=== PATIENT | female | born 2000 | race Caucasian/White ===

== ENCOUNTER 2024-05-24 06:41 | Outpatient (REF) | payer OTHER, SELFPAY ==
--- NOTE | ~2024-05-24 | US_ITS ---
CLINICAL HISTORY: LEFT FLANK PAIN US Renal Comparison: None Findings: Right kidney normal size and echotexture, 11.6 cm length. Left kidney normal size and echotexture, 10.1 cm length. No hydronephrosis of either kidney. Normal color Doppler. Urinary bladder is unremarkable. Prevoid volume 508 mL. Postvoid volume 12 mL. Bilateral ureteral jets are visualized. IMPRESSION: 1. Normal kidneys. This document has been electronically signed by: Jerman Jaime MD on 05/24/2024 12:09:04
--- OUTSIDE RECORDS SUMMARY | 2024-05-24 10:25 | XMS_ITS | Encounter Summary ---
Author Organization [facility] Address [address] [place] [address] Care Team Providers Care Skip Load Driver Name Role Phone Unavailable Primary Care Provider Unavailabl e Encounter Details Date Type Department Care Team (Late st Contact Info) Description 05/21/2024 Orders Only [facility] Department Of Tube Handler [place] [address] [place] [phone] Ruth Jones APRN [address] [place] [id number] Social History Tobacco Use Types Packs/Day Years Used Date Smoking Tobacco: Never Smokeless Tobacco: Never Alcohol Use Standard Drinks/Week Comments Yes 2 (1 standard drink = 0.6 oz pur e alcohol) AUDIT-C Answer Date Recorded Q1: How often do you have a drink containing alc ohol? Never 05/02/2020 Average Number of Drinks Not on file 021 Frequency of Binge Drinking Not on file 11/2020 Sex and Gender Information Value Date Recorded Sex Assigned at Not on file Gender Identity Not on file Sexual Orientation Not on file documented as of this encounter Plan of Treatment Upcoming Encounters Date Type Department Care Team (Late st Contact Info) Description 05/23/2025 9:30 AM EST Office Visit [facility] Department Of Tube Handler [place] [address] [place] [phone] Ruth Jones APRN [address] [place] [address] (work) documented as of this encounter Procedures Procedure Name Priority Date/Time Associated Diagnosis Comments GC/CHLAMYDIA RNA BY TMA Routine 05/21/2024 9:14 AM EST documented in this encounter Results * GC/CHLAMYDIA RNA BY TMA (05/21/2024 9:14 AM EST) Specimen Type Thin Prep Container [facility] Chlamydia Trachomatis NEGATIVE Negative [facility] Neisseria Gonorrhoeae RNA, TMA NEGATIVE Negative [facility] Comment: These tests were performed using the Aptima Combo2 assay by [employer] (Gen-Probe). 05/21/2024 9:14 AM EST 05/21/2024 7:27 PM EST Ruht Jones APRN MICROBIOLOGY - G ENERAL ORDERABLES Performing Organization Address City/State/[facility] Co de Phone Number [facility] [address] [place] [address] documented in this encounter Visit Diagnoses Not on filedocumented in this encounter
--- OUTSIDE RECORDS SUMMARY | 2024-05-24 10:25 | XMS_ITS | Encounter Summary ---
Author Organization [facility] Address [address] [place] [address] Care Team Providers Care Ethnographer Name Role Phone Unavailable Primary Care Provider Unavailabl e Encounter Details Date Type Department Care Team ([facility] st Contact Info) Description 05/21/2024 9:00 AM EST Office Visit [facility] Department Of Industrial Yard Brake Coupler [place] [address] [place] [phone] Ruth Jones, ANALYTICS DEVELOPER [address] [facility] [address] [place] [address] Encounter for gynecological examination without abnormal finding (Primary Dx); Routine cervical smear; Screening for gonorrhea; Screen for sexually transmitted diseases; Screening for chlamydial disease Social History Tobacco Use Types Packs/Day Years [...] on file documented as of this encounter Last Filed Vital Signs Vital Sign Reading Time Taken Comments Blood Pressure 118/74 05/21/2024 8:50 AM EST Pulse - - Temperature - - Respiratory Rate - - Oxygen Saturation - - Inhaled Oxygen Concentration - - Weight 93.9 kg (207 lb) 05/21/2024 8:50 AM EST Height - - Body Mass Index 31.47 09/27/2022 10:47 AM EDT documented in this encounter Progress Notes * Ruth Jones, ANALYTICS DEVELOPER - 05/21/2024 8:56 AM EST Images from the original note were not included. Name: Radha Goodwin : 2000 Encounter Date: 05/21/2024 Assessment & Plan Diagnoses 1. Encounter for gynecological examination without abnormal finding 2. Routine cervical smear 3. Screening for gonorrhea 4. Screen for sexually transmitted diseases 5. Screening for chlamydial disease Orders Orders Placed This Encounter ThinPrep Pap Test (Lab Analyst) with HPV Reflex, GC/CT Follow Up/Plan 23 y.o. 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 Subjective Subjective Radha is a 23 y.o. female seen today for her annual exam. Doing well! No rn pain management issues, is currently on meds for UTI +SA in the past year, not in current relationship Minimal exercise Last semester at school!!! Vitals BP 118/74 Wt 207 lb Review of Systems Constitutional: Negative for activity change, appetite change, fatigue and unexpected weight change. Respiratory: Negative for cough, shortness of breath, wheezing and stridor. Cardiovascular: Negative for chest pain and palpitations. Gastrointestinal: Negative for abdominal distention, abdominal pain, anal bleeding, blood in stool,constipation, diarrhea, nausea, rectal pain and vomiting. Endocrine: Negative for cold intolerance and heat intolerance. Genitourinary: Negative for difficulty urinating, dyspareunia, dysuria, frequency, genital sores, hematuria, menstrual problem, pelvic pain, urgency, vaginal bleeding, vaginal discharge and vaginal pain. Musculoskeletal: Negative for joint swelling and myalgias. Skin: Negative for color change, rash and wound. Allergic/Immunologic: Negative for food allergies. Neurological: Negative for dizziness, light-headedness and headaches. Hematological: Does not bruise/bleed easily. Psychiatric/Behavioral: Negative for behavioral problems, decreased concentration, sleep disturbance and suicidal ideas. The patient is not nervous/anxious. Objective Objective No Known Allergies Current Outpatient Medications: norethindrone-ethinyl estradiol (MICROGESTIN 05/14) 1-20 MG-MCG per tablet, Take 1 tablet by mouth daily., Disp: 84 tablet, Rfl: 1 Patient Active Problem List Diagnosis Anxiety BMI 30.0-30.9,adult Elevated LDL cholesterol level Panic attacks Physical Exam Constitutional: Appearance: Normal appearance. She is normal weight. Genitourinary: Bladder and urethral meatus normal. Right Labia: No rash, tenderness, lesions, skin changes or Bartholin's cyst. Left Labia: No tenderness, lesions, skin changes, Bartholin's cyst or rash. No labial fusion noted. No vaginal discharge, tenderness or ulceration. Right Adnexa: not tender, not full and no mass present. Left Adnexa: not tender, not full and no mass present. Cervix is nulliparous. No cervical motion tenderness, discharge, lesion or polyp. Uterus is not enlarged, tender or prolapsed. Uterus is anteverted. No urethral prolapse or tenderness present. Breasts: Breasts are soft. Right: Normal. No inverted nipple, mass, nipple discharge or skin change. Left: Normal. No inverted nipple, mass, nipple discharge or skin change. HENT: Head: Normocephalic and atraumatic. Abdominal: General: Abdomen is flat. Palpations: Abdomen is soft. There is no mass. Tenderness: There is no abdominal tenderness. There is no guarding. Neurological: Mental Status: She is alert. Vitals reviewed. Histories Past Medical History: Diagnosis Date Suicidal ideation Past Surgical History: Procedure Laterality Date WISDOM TOOTH EXTRACTION OB History Para Term AB Living 0 0 0 0 0 0 SAB IAB Ectopic Molar Multiple Live Births 0 0 0 0 0 0 Social History Tobacco Use Smoking status: Never Smokeless tobacco: Never Substance Use Topics Alcohol use: Yes Alcohol/week: 2.0 - 3.0 standard drinks of alcohol Types: 2 - 3 Standard drinks or equivalent per week Social History Substance and Sexual Activity Sexual Activity Yes Partners: Female, Male control/protection: Condom Family History Problem Relation Age of Onset Hyperlipidemia Mother Diabetes Father Signatures: Ruth Jones APRN < Electronically signed by Ruth Jones APRN > 05/21/24 9:36 AM documented in this encounter Plan of Treatment Upcoming Encounters Date Type Department Care Team (Late st Contact Info) Description 05/23/2025 9:30 AM EST Office Visit [facility] Department Of Industrial Yard Brake Coupler [address] [phone] Ruth Jones R, ANALYTICS DEVELOPER [address] [facility] [address] [place] [address] Scheduled Orders Name Type Priority Associated Diagnoses Orde r Schedule ThinPrep Pap Test (Lab Analyst) with HPV Reflex, GC/CT Pathology and Cytology Routine Encounter for gynecological examination without abnormal finding Routine cervical smear Screening for gonorrhea Screen for sexually transmitted diseases Screening for chlamydial disease Ordered: 05/21/2024 documented as of this encounter Visit Diagnoses Diagnosis Encounter for gynecological examination without abnormal finding- Primary Routine cervical smear Screening for malignant neoplasm of the cervix Screening for gonorrhea Screening examination for venereal disease Screen for sexually transmitted diseases Screening examination for venereal disease Screening for chlamydial disease Special screening examination for unspecified chlamydial disease documented in this encounter
--- OUTSIDE RECORDS SUMMARY | 2024-05-24 10:26 | XMS_ITS | Clinical Summary ---
Author Organization [facility] Address [address] [place] [address] Care Team Providers Care Oxygen Furnace Operator Name Role Phone Unavailable Primary Care Provider Unavailabl e Allergies No known active allergies Medications Medication Sig Dispensed Refills Start Date End Date Status norethindrone-ethinyl estradiol (MICROGESTIN 05/14) 1-20 MG-MCG per tabletIndications:Enco unter for surveillance of contraceptive pills Take 1 tablet by mouth daily. 84 tablet 1 02/03/2024 07/20/2024 Active Active Problems Problem Noted Date Diagnosed Date Panic attacks 09/27/2022 Anxiety 08/26/2022 08/26/2022 BMI 30.0-30.9,adult 08/26/2022 08/26/2022 Elevated LDL cholesterol level 08/26/2022 0 08/26/2022 Encounters Date Type Department Care Team Description 05/21/2024 9:00 AM EST Office Visit [facility] Department Of Surgical Supply Assistant [place] [address] [place] [phone] Ruth Jones APRN Encounter for gynecological examination without abnormal finding (Primary Dx); Routine cervical smear; Screening for gonorrhea; Screen for sexually transmitted diseases; Screening for chlamydial disease 05/21/2024 Orders Only [facility] Department Of Surgical Supply Assistant [place] [address] [place] [phone] Ruth Jones APRN from Last 3 Months Immunizations Name Administration Dates Next Due Covid-19 MRNA Vaccine - Pfiz er 12+ (Purple Cap) 09/16/2020,08/25/2020 DTaP 01/09/2004, 3,2002,10/16 DTaP / IPV 07/03/2007 HPV Nonavalent 02/20/2019,10/12/2018,08/10/2018 Hep A, 2 Dose 03/09/2013,11/09/2010 Hep B, Adolescent or Pediatric 3,2002,2002,08/09 Hib 01/09/2004, 3,2002,10/16 IPV 02/25/2003,2002,2002 Influenza Inactivated/Split Preservative Free IM 02/25/2020 Influenza, Quadrivalent (FLU ARIX, AFLURIA, FLULAVAL, FLUZONE) Preservative Free IM 04/21/2021,02/25/2020,02/20/2019,03/09 MMR 07/03/2007,09/05/2003 Meningococcal MCV4O (Menveo) 10/13/2020,12/12/19 14 Meningococcal Serogroup B 3-Dose 04/21/2021,09/24 Pneumococcal Conjugate, Unspecified 06/2004,02/25/2003,2002,10/16 Tdap 12/11/2013 Varicella 11/09/2010,09/05/2003 Family History Medical History Relation Name Comments Diabetes Father Hyperlipidemia Mother Relation Name Status Comments Father Mother Social History Tobacco Use Types Packs/Day Years Used Date Smoking Tobacco: Never Smokeless Tobacco: Never Tobacco Cessation:Counseling Given: Not Answered Alcohol Use Standard Drinks/Week Comments Yes 2 [...] on file Sexual Orientation Not on file Last Filed Vital Signs Vital Sign Reading Time Taken Comments Blood Pressure 118/74 05/21/2024 8:50 AM EST Pulse 72 09/27/2022 10:47 AM EDT Temperature 36.3 ??C (97.3 ??F) 07/26/2020 3:53 PM ED T Respiratory Rate - - Oxygen Saturation 99% 07/26/2020 3:53 PM EDT Inhaled Oxygen Concentration - - Weight 93.9 kg (207 lb) 05/21/2024 8:50 AM EST Height 172.7 cm (5' 8 ) 09/27/2022 10:47 AM EDT Body Mass Index 31.47 09/27/2022 10:47 AM EDT Plan of Treatment Upcoming Encounters Date Type Department Care Team (Late st Contact Info) Description 05/23/2025 9:30 AM EST Office Visit [facility] Department Of Surgical Supply Assistant [place] [address] [place] [phone] Ruth Jones, SOO [address] [facility] [address] [place] [address] Health Maintenance Due Date Last Done Comments Hepatitis C Virus Screening 2002 HIV Screening 08/09/2015 Pap Smear (Ages 21-65) 08/09/2023 Influenza Vaccine 11/24/2023 04/21/2021, , 02/25/2020, Additional history exists DTaP/Tdap/Td Vaccines (7 - Td or Tdap) 12/12/2023 12/11/2013, 07/03/2007, 01/09/2004, Additional history exists COVID-19 Vaccine ( season) 2023 09/16/2020, 08/25/2020 Hepatitis B Vaccines Completed 02/25/2003, 2002, 2002, Additional history exists Pneumococcal Vaccine: Pediatric (0-5 Years) and At-Risk Patients (6 to 49 Years) Aged Out 05/28/2004, 02/25/2003, 2002, Additional history exists No longer eligible based on patient's age to complete this topic MMR Vaccines Discontinued 07/03/2007, 09/05/2003 Polio (IPV/OPV) Vaccines Discontinued 008, 02/25/2003, 2002, Additional history exists Varicella Vaccines Discontinued 11/09/2010, 09/05/2003 Hepatitis A Vaccines Discontinued 03/09/2013, 11/10/19 11 HPV Vaccines Completed 02/20/2019, 09/24, 08/10/2018 Influenza Vaccine Discontinued 04/21/2021, , 02/25/2020, Additional history exists Meningococcal Vaccine Discontinued 04/21/2021 , 10/13/2020, 10/13/2020, Additional history exists Procedures Procedure Name Priority Date/Time Associated Diagnosis Comments GC/CHLAMYDIA RNA BY TMA Routine 05/21/2024 9:14 AM EST from Last 3 Months Results * GC/CHLAMYDIA RNA BY TMA (05/21/2024 9:14 AM EST) Specimen Type Thin Prep Container [facility] Chlamydia Trachomatis NEGATIVE Negative [facility] Neisseria Gonorrhoeae RNA, TMA NEGATIVE Negative [facility] Comment: These tests were performed using the Aptima Combo2 assay by [employer] (Gen-Probe). 05/21/2024 9:14 AM EST 05/21/2024 7:27 PM EST Ruth Jones PANEL BEATER MICROBIOLOGY - G ENERAL ORDERABLES Performing Organization Address City/State/[facility] Co de Phone Number [facility] [address] [place] [address] from Last 3 Months ELMO GOODWIN Third [employer] Party Liability Father [birth year]/12/1966 [address] [phone]
== END 2024-05-24 06:42 | disposition home or self-care (01) ==
LOC: HO.UMASIMG 06:41
PROVIDERS: Visit Provider Nurse Practitioner Women's Health
DX: R30.0 Dysuria (principal)
CPT/HCPCS: 76770

== ENCOUNTER → 2024-05-24 10:30 | Outpatient (BNV) | payer OTHER, SELFPAY | PROVIDERS: Visit Provider Radiology Vascular & Interventional Radiology | DX: R10.9 Unspecified abdominal pain (principal) | CPT/HCPCS: 76770 ==